=== PATIENT | female | born 1965 | race Caucasian/White ===

== ENCOUNTER 2025-01-25 07:53 | Outpatient (CLI) | payer BC, SELFPAY ==
--- NOTE | ~2025-01-25 | US_ITS ---
US abdomen limited Indication: elevated bilirubin Comparison: None Technique: Parsons-scale and color Doppler images were obtained. Findings: LIVER: Moderate increased echogenicity of the liver. . GALLBLADDER/BILIARY: Unremarkable.No cholelithiais, wall thickening or pericholecystic fluid. No biliary dilatation. CBD 4 mm. [place] sign negative. PANCREAS: Unremarkable. Right Kidney: Right kidney 11.2 cm, normal. Impression: 1. Moderate hepatic steatosis Reviewed, dictated and finalized at location P. Impression: 1. Moderate hepatic steatosis
== END 2025-01-25 07:54 | disposition home or self-care (01) ==
LOC: MICIMG 07:53
PROVIDERS: PCP Family Medicine; Visit Provider Family Medicine
DX: K76.0 Fatty (change of) liver, not elsewhere classified (principal)
CPT/HCPCS: 76705